=== PATIENT | female | born 1980 | race Caucasian/White ===

== ENCOUNTER 2016-11-23 12:04 | Day surgery (SDC) | payer OTHER ==
[2016-11-22 08:34] VITALS: BP 106/57
[~2016-11-23] VITALS: Ht 167.6 cm; Wt 94.2 kg
[~2016-11-23 12:04] MED LIST: DESO1TAB35 PO; PREN-3 PO
[2016-11-23] MEDS ORDERED: LACTATED RINGERS 1,000 ML IV SCH (12:29)
[2016-11-23] MEDS ORDERED: LIDOCAINE 1%, 2ML SQ PRN (12:30)
[2016-11-23] MEDS ORDERED: LIDOCAINE 1%, 2ML ONE (12:32)
[2016-11-23] MEDS ORDERED: MIDAZOLAM 1 MG/ML, 2ML ONE (14:01)
[2016-11-23] MEDS ORDERED: FENTANYL PF 100 MCG/2ML ONE ×2 (14:01→15:33)
[2016-11-23] MEDS ORDERED: BUPIVACAINE/PF 0.25% ONE (14:05)
[2016-11-23] MEDS ORDERED: FENTANYL PF 100 MCG/2ML IV PRN (14:30)
[2016-11-23] MEDS ORDERED: LABETALOL 5MG/ML, 20ML IV PRN (14:30)
[2016-11-23] MEDS ORDERED: OXYcodone 5 MG/5 ML ORAL.SOL UDC PO PRN (14:30)
[2016-11-23] MEDS ORDERED: MIDAZOLAM 1 MG/ML, 2ML IV PRN (14:30)
[2016-11-23] MEDS ORDERED: MEPERIDINE/PF 25MG/0.5ML IVPush PRN (14:30)
[2016-11-23] MEDS ORDERED: HYDROmorphone 1 MG/ML, 1ML IV PRN (14:30)
[2016-11-23] MEDS ORDERED: ONDANSETRON 2MG/ML, 2ML IVPush PRN (14:30)
[2016-11-23] MEDS ORDERED: PROMETHAZINE 25 MG/ML, 1ML IV PRN (14:30)
[2016-11-23] MEDS ORDERED: ALBUTEROL SULFATE 2.5 MG/3 ML NPPB PRN (14:30)
[2016-11-23] MEDS ORDERED: METOCLOPRAMIDE 5 MG/ML, 2ML IV PRN (14:30)
[2016-11-23] MEDS ORDERED: EPHEDRINE 50 MG/ML, 1ML IVPush PRN (14:30)
[2016-11-23] MEDS ORDERED: ACETAMINOPHEN 325 MG TABLET PO PRN (14:30)
[2016-11-23] MEDS ORDERED: KETOROLAC 30 MG/1 ML IV PRN (14:30)
[2016-11-23] MEDS ORDERED: METOPROLOL 1 MG/ML, 5ML IV PRN (14:30)
[2016-11-23] MEDS ORDERED: HYDROcodone/APAP 7.5-325MG/15ML UDC PO PRN (14:30)
[2016-11-23] MEDS ORDERED: SILVER NITRATE STICK TP ONE (14:54)
[2016-11-23] MEDS ORDERED: KETOROLAC 30 MG/1 ML ONE (15:33)
[2016-11-23] MEDS ORDERED: OXYcodone 5 MG/5 ML ORAL.SOL UDC ONE (15:49)
[2016-11-23] MEDS ORDERED: DEXAMETHASONE 4 MG/ML, 1ML ONE (16:43)
[2016-11-23] MEDS ORDERED: PROPOFOL 10 MG/ML, 20ML ONE (16:43)
[2016-11-23] MEDS ORDERED: ONDANSETRON 2MG/ML, 2ML ONE (16:43)
== END 2016-11-23 16:55 ==
LOC: OUT 12:04
PROVIDERS: ATTEND Obstetrics & Gynecology Reproductive Endocrinology
DX: N84.0 Polyp of corpus uteri (principal)
CPT/HCPCS: 36415; 58558; 81001; 84702; 85025; 88305; J1100; J1885; J2250; J2405; J2704; J3490; J7120; J3010